=== PATIENT | female | born 1990 | race Caucasian/White ===

== ENCOUNTER 2023-03-02 13:07 | Outpatient (CLI) | payer OTHER | END 2023-03-02 14:38 | disposition home or self-care (01) | LOC: NST 13:07 | PROVIDERS: ATTEND Obstetrics & Gynecology Maternal & Fetal Medicine | DX: Z34.83 Encounter for supervision of other normal pregnancy, third trimester (principal) ==

== ENCOUNTER 2023-03-11 15:30 | Inpatient (IN) | payer OTHER ==
[~2023-03-11] VITALS: Ht 152.4 cm; Wt 58.1 kg
[2023-03-19] MEDS ORDERED: PRENATAL TABLE1 EAC1 PO (13:33)
== END 2023-03-21 17:44 | disposition home or self-care (01) | DRG 788 ==
LOC: LDR 03-19 13:30 → OB/GYN 03-19 13:30 → O/R 03-19 20:33 → OB/GYN 03-19 22:51
PROVIDERS: ADMIT Obstetrics & Gynecology; ATTEND Obstetrics & Gynecology
PROC: 4A1HXCZ Monitoring of Products of Conception, Cardiac Rate, External Approach (ICD-10-PCS; 2023-03-19)
PROC: 10D00Z1 Extraction of Products of Conception, Low, Open Approach (ICD-10-PCS; principal; 2023-03-19 19:30)
DX: O33.5XX0 Maternal care for disproportion due to unusually large fetus, not applicable or unspecified (principal); O36.63X0 Maternal care for excessive fetal growth, third trimester, not applicable or unspecified; Z3A.40 40 weeks gestation of pregnancy; Z37.0 Single live birth; Z20.822 Contact with and (suspected) exposure to COVID-19

== ENCOUNTER 2023-03-16 14:48 | Outpatient (CLI) | payer OTHER | END 2023-03-16 16:25 | disposition home or self-care (01) | LOC: NST 14:48 | PROVIDERS: ATTEND Obstetrics & Gynecology Gynecology | DX: Z34.83 Encounter for supervision of other normal pregnancy, third trimester (principal) ==

== ENCOUNTER 2023-03-19 11:40 | Outpatient (CLI) | payer OTHER ==
[2023-03-19] MEDS ORDERED: PRENATAL TABLE1 EAC1 PO (13:33)
== END 2023-03-19 12:21 | disposition home or self-care (01) ==
LOC: NST 11:40
PROVIDERS: ATTEND Obstetrics & Gynecology Gynecology
DX: Z34.83 Encounter for supervision of other normal pregnancy, third trimester (principal)